=== PATIENT | female | born 1965 | race Caucasian/White ===

== ENCOUNTER 2018-03-24 10:54 | Emergency (ER) | payer BC, OTHER ==
[~2018-03-24] VITALS: Ht 170.1 cm; Wt 72.6 kg
--- NOTE | ~2018-03-24 | EKG ---
[place], [place] ELECTROCARDIOGRAM REPORT NAME: CULLEN MARCUM UNIT #: [id number] ROOM: DOCTOR: EPIPHANY DRAFT REPORT BIRTHDATE: [birth year] [facility] Test Date: 2018-03-24 Test Time: 11:14:38 Pat Name: CULLEN MARCUM Department: ER Room: Gender: F Apple Picking Supervisor: Deb Beltran : 1965 Requested By: BAKARI ALONSO Order Number: [id number] Reading MD: Josselyn Jordan MD Measurements Intervals Pinch Rate: 58 P: 61 [place]: 167 QRS: 66 QRSD: 86 T: 53 QT: 462 QTc: 454 Interpretive Statements Sinus rhythm Nonspecific T abnormalities, anterior leads Electronically Signed On 03-26-2018 14:28:19 PST by Josselyn Jordan MD CM:EKGRPT:ELECTROCARDIOGRAM REPORT [id number] BAKARI LUDWIG DRAFT REPORT BAKARI ALONSO DO
[2018-03-24] MEDS ORDERED: XANAX1 MG PO (10:59)
[2018-03-24 11:25] LABS: BASO % 0.4 % (0.0-1.0); EOS # 0.3 10*3/uL (0.0-0.4); EOS % 2.5 % (1.0-4.0); HEMATOCRIT 38.9 % (37.0-47.0); HEMOGLOBIN 13.2 g/dl (12.0-16.0); LYMPH # 1.7 10*3/uL (1.3-4.4); LYMPH % 15.9 % (27.0-41.0); MEAN CORPUSCULAR HGB 33.2 pg (27.0-31.0); MEAN CORPUSCULAR HGB CONC 33.9 g/dl (33.0-37.0); MEAN PLATELET VOLUME 9.7 fl (9.6-12.3); MONO # 0.7 10*3/uL (0.1-1.0); MONO % 6.3 % (3.0-9.0); NEUT # 7.8 10*3/uL (2.3-7.9); NEUT % 74.5 % (47.0-73.0); PLATELET COUNT AUTOMATED 256 10*3/uL (130-400); RED BLOOD COUNT 3.97 10*6/uL (4.10-5.10); RED CELL DISTRI WIDTH 13.7 % (0-14.5); WHITE BLOOD COUNT 10.4 10*3/uL (4.8-10.8)
[2018-03-24 11:34] LABS: ACT PARTIAL THROMBO TIME 24.1 SECONDS (20.8-31.5); INTERNATIONAL NORM RATIO 0.9 (2.0-3.5)
[2018-03-24 11:40] LABS: ALBUMIN 3.5 gm/dl (3.1-4.5); ALKALINE PHOSPHATASE 72 U/L (45-117); BUN 15 mg/dl (7-24); CHLORIDE 109 mmol/L (98-107); LIPASE 49 U/L (73-393); POTASSIUM 3.6 mmol/L (3.5-5.1); SGOT/AST 95 IU/L (3-35); SGPT/ALT 25 U/L (12-78); SODIUM 145 mmol/L (136-145); TOTAL PROTEIN 7.4 gm/dL (6.4-8.2)
[2018-03-24 11:42] LABS: TROPONIN I < 0.015 ng/ml (<0.045)
[2018-03-24 12:02] LABS: BILIRUBIN NEGATIVE (NEGATIVE); BLOOD NEGATIVE (NEGATIVE); CLARITY SL CLOUDY (CLEAR); COLOR YELLOW (YELLOW); GLUCOSE NEGATIVE (NEGATIVE); KETONE NEGATIVE (NEGATIVE); LEUKO ESTERASE NEGATIVE (NEGATIVE); NITRITE NEGATIVE (NEGATIVE); SPECIFIC GRAVITY 1.025 (1.005-1.030); UROBILINOGEN 0.2 E.U./dl (0.2-1.0)
[2018-03-24 12:09] LABS: URINE AMPHETAMINES < 1000 (1000ng/ml); URINE BARBITURATES < 200 (200ng/ml); URINE BENZODIAZEPINES > 200 (200ng/ml); URINE CANNABINOIDS (THC) < 50 (50ng/ml); URINE COCAINE < 300 (300ng/ml); URINE METHADONE < 300 (300ng/ml); URINE OPIATES < 300 (300ng/ml)
[2018-03-24 12:10] LABS: URINE PHENCYCLIDINE < 25 (25ng/ml)
[2018-03-24 12:13] LABS: BACTERIA TRACE; MUCOUS 1+
== END 2018-03-24 16:50 | disposition left against medical advice (07) ==
LOC: ED 10:54
PROVIDERS: Emergency Medicine
DX: F41.9 Anxiety disorder, unspecified (principal); R07.89 Other chest pain

== ENCOUNTER 2018-05-28 11:09 | Emergency (ER) | payer BC ==
--- NOTE | ~2018-05-28 | EKG ---
[place], [place] ELECTROCARDIOGRAM REPORT NAME: CULLEN MARCUM UNIT #: [id number] ROOM: DOCTOR: EPIPHANY DRAFT REPORT BIRTHDATE: [birth year] [facility] Test Date: 2018-05-28 Test Time: 12:02:23 Pat Name: CULLEN MARCUM Department: er Room: Gender: F Recreational Therapist: : 1965 Requested By: MADAN LONG Order Number: [id number] Reading MD: Martinez Ricketts MD Measurements Intervals [place] Rate: 81 P: 62 [place]: 192 QRS: 53 QRSD: 99 T: 32 QT: 395 QTc: 459 Interpretive Statements Sinus rhythm T wave inversion in anterior leads Compared to ECG 03/24/2018 11:14:38 No significant change Electronically Signed On 05-28-2018 17:31:43 PST by Martinez Ricketts MD CM:EKGRPT:ELECTROCARDIOGRAM REPORT [id number] 1731 MADAN SUNSHINE DRAFT REPORT MADAN LONG M.D.
[~2018-05-28 11:09] MED LIST: XANAX1 MG PO
[2018-05-28] MEDS ORDERED: VIIBRYD40 PO (11:10)
[2018-05-28 11:53] LABS: BASO # 0.1 10*3/uL (0.0-0.1); BASO % 0.6 % (0.0-1.0); EOS # 0.1 10*3/uL (0.0-0.4); EOS % 0.8 % (1.0-4.0); HEMATOCRIT 45.4 % (37.0-47.0); LYMPH # 3.1 10*3/uL (1.3-4.4); MEAN CORPUSCULAR HGB 33.5 pg (27.0-31.0); MEAN CORPUSCULAR HGB CONC 35.2 g/dl (33.0-37.0); MEAN PLATELET VOLUME 9.9 fl (9.6-12.3); MONO # 0.8 10*3/uL (0.1-1.0); MONO % 5.9 % (3.0-9.0); NEUT # 9.9 10*3/uL (2.3-7.9); NEUT % 70.3 % (47.0-73.0); PLATELET COUNT AUTOMATED 354 10*3/uL (130-400); RED BLOOD COUNT 4.78 10*6/uL (4.10-5.10)
[2018-05-28 12:07] LABS: URINE AMPHETAMINES < 1000 (1000ng/ml); URINE BARBITURATES < 200 (200ng/ml); URINE BENZODIAZEPINES < 200 (200ng/ml); URINE CANNABINOIDS (THC) < 50 (50ng/ml); URINE COCAINE < 300 (300ng/ml); URINE METHADONE < 300 (300ng/ml); URINE OPIATES < 300 (300ng/ml)
[2018-05-28 12:08] LABS: ALBUMIN 4.7 gm/dl (3.1-4.5); ALKALINE PHOSPHATASE 94 U/L (45-117); BUN 15 mg/dl (7-24); CHLORIDE 104 mmol/L (98-107); CREATININE 0.77 mg/dL (0.55-1.02); POTASSIUM 3.8 mmol/L (3.5-5.1); SGOT/AST 81 IU/L (3-35); SGPT/ALT 26 U/L (12-78); SODIUM 136 mmol/L (136-145); TOTAL PROTEIN 8.8 gm/dL (6.4-8.2)
[2018-05-28 12:14] LABS: URINE PHENCYCLIDINE < 25 (25ng/ml)
[2018-05-28] MEDS ORDERED: ATARAX,VISTARIL50 MG PO (13:50)
== END 2018-05-28 14:54 | disposition home or self-care (01) ==
LOC: ED 11:09
PROVIDERS: Emergency Medicine
DX: F41.9 Anxiety disorder, unspecified (principal); E16.2 Hypoglycemia, unspecified; Z79.899 Other long term (current) drug therapy